=== PATIENT | female | born 1965 | race Caucasian/White ===

== ENCOUNTER 2017-05-11 16:11 | Emergency (ER) | payer SELFPAY ==
[2017-05-11 16:20] VITALS: BP 154/90
--- NOTE | 2017-05-11 16:43 | UC ---
Lower Extremity/Ankle HPI - HPI Summary HPI Summary: 51 yo female states she has been working harder than normal on her feet pain left foot x one week started while at work getting progressively worse worse after finishing shift hurts to bear wt - History of Current Complaint Chief Complaint: UCLowerExtremity Stated Complaint: FOOT INJURY (WC) Time Seen by Provider: 05/11/17 16:35 Hx Obtained From: Patient Onset/Duration: Gradual Onset, Lasting Weeks Severity Initially: Mild Severity Currently: Moderate Pain Intensity: 2 - worse with wt bearing Pain Scale Used: 0-10 Numeric Aggravating Factor(s): Standing, Ambulation Alleviating Factor(s): Rest Able to Bear Weight: Yes Related History: Occupational Injury - per pt - Allergies/Home Medications Allergies/Adverse Reactions: Allergies Allergy/AdvReac Type Severity Reaction Status Date / Time narcotics Allergy Unknown Uncoded 05/11/17 16:21 Reaction Details PMH/Surg Hx/FS Hx/Imm Hx Previously Healthy: Yes - Surgical History Surgical History: None - Family History Known Family History: Positive: Hypertension - Social History Alcohol Use: None Substance Use Type: None Smoking Status (MU): Heavy Every Day Tobacco Smoker Type: Cigarettes Amount Used/How Often: 1 ppd Review of Systems Constitutional: Negative Skin: Negative Eyes: Negative ENT: Negative Respiratory: Negative Cardiovascular: Negative Gastrointestinal: Negative Genitourinary: Negative Motor: Negative Neurovascular: Negative Musculoskeletal: Arthralgia Neurological: Negative Psychological: Negative Is Patient Immunocompromised?: No All Other Systems Reviewed And Are Negative: Yes Physical Exam Triage Information Reviewed: Yes Appearance: Well-Appearing, No Pain Distress, Well-Nourished Vital Signs: Initial Vital Signs Temp 99.4 F 05/11/17 16:14 Pulse 89 05/11/17 16:14 Resp 16 05/11/17 16:14 BP 154/90 05/11/17 16:14 Pulse Ox 100 05/11/17 16:14 Vital Signs Reviewed: Yes Eye Exam: Normal ENT: Positive: Hearing grossly normal, Pharynx normal, Pharyngeal erythema Neck: Positive: Supple, Nontender, No Lymphadenopathy Respiratory: Positive: Lungs clear, Normal breath sounds, No respiratory distress Cardiovascular: Positive: RRR, No Murmur Musculoskeletal: Positive: Strength Intact, ROM Intact, No Edema Neurological: Positive: Alert Psychological Exam: Normal Skin Exam: Normal Diagnostics - Radiology No standard instances Xray Interpretation: No Acute Changes Radiology Interpretation Completed By: Radiologist Lower Extremity Course/Dx - Differential Dx/Diagnosis Provider Diagnoses: overuse injury left foot Discharge - Discharge Plan Condition: Stable Disposition: HOME Prescriptions: Naproxen Sodium [Naproxen Sodium 500 MG TAB] 500 mg PO BID PRN #30 tab PRN Reason: Pain Referrals: No Primary Care Phys,NOPCP [Primary Care Provider] - Images Feet (Multiple View): 1 - tender/antalgic giat
--- NOTE | 2017-05-11 17:11 | RAD ---
Indication: LEFT second and third metatarsal phalangeal joint and digit pain for one week without known injury. Comparison: No relevant prior exams available on the [facility] PACS for comparison. Technique: AP, lateral, and oblique views LEFT foot. Report: Normal articular alignment. No significant arthropathic change evident. Negative for fracture or radiographic stigmata of stress reaction. Small os tibiale externum accessory ossicle. Unremarkable soft tissue contours. IMPRESSION: Negative exam.
== END 2017-05-11 17:31 | disposition home or self-care (01) ==
LOC: UCEAST 16:11
DX: M70.872 Other soft tissue disorders related to use, overuse and pressure, left ankle and foot (principal); Y93.9 Activity, unspecified; Z88.5 Allergy status to narcotic agent; F17.210 Nicotine dependence, cigarettes, uncomplicated
CPT/HCPCS: 99203; G0463